=== PATIENT | male | born 1975 | race Hispanic/Latino ===

== ENCOUNTER 2022-01-10 10:18 | Emergency (ER) | payer OTHER ==
[~2022-01-10] VITALS: Ht 157.5 cm; Wt 70.3 kg
[2022-01-10 12:13] LABS: BASOPHILS % (AUTO) 0.5 % (0.0-5.0); HEMATOCRIT 38.2 % (42-54); MEAN CORPUSCULAR HEMOGLOBIN 32.4 pg (27.0-33.0); MEAN CORPUSCULAR VOLUME 98.2 fL (79-99); MONOCYTES % (AUTO) 9.3 % (3.0-13.0); NEUTROPHILS % (AUTO) 77.9 % (40.0-77.0); PLATELET COUNT (AUTO) 285 K/uL (130-400); RED BLOOD CELL COUNT(AUTO) 3.89 MIL/uL (4.50-6.20); WHITE BLOOD COUNT (AUTO) 12.5 K/uL (4.8-10.8)
[2022-01-10] MEDS ORDERED: LIDOCAINE HCL MPF 1% 5ML VIAL ONE (12:32)
[2022-01-10 12:42] LABS: CREATININE 0.9 mg/dL (0.5-1.5); POTASSIUM 4.2 mmol/L (3.5-5.1)
[2022-01-10 12:46] LABS: ALBUMIN 3.4 g/dL (3.5-5.0); BILIRUBIN,TOTAL 0.6 mg/dL (0.2-1.0); TOTAL PROTEIN, SERUM 7.7 g/dL (6.0-8.3); URIC ACID 7.2 mg/dL (2.6-7.2)
[2022-01-10 13:19] LABS: ERYTHROCYTE SEDIMENTATION RATE 49 MM/HR (0-15)
[2022-01-10] MEDS ORDERED: KETOROLAC 60 MG VIAL (30MG/ML) IM ONE (13:30)
[2022-01-10 13:55] LABS: APPEARANCE BODY FLUID CLOUDY (CLEAR); COLOR,BODY FLUID YELLOW (LT YELLOW); SPECIMENTYPE,BODY FLUID SYNOVIAL; TOTAL VOLUME,BODY FLUID 12 mL
[2022-01-10 13:56] LABS: BODY FLUID RBC 100 /cu. mm.; BODY FLUID WBC 5680 /cu. mm.
[2022-01-10 13:59] LABS: BF LYMPHOCYTE 2 %
[2022-01-10] MEDS ORDERED: NAPR-1180 PO (15:52)
[2022-01-10 16:04] VITALS: BP 126/78
== END 2022-01-10 16:17 | disposition home or self-care (01) ==
LOC: EDH 10:18
DX: M25.462 Effusion, left knee (principal); M25.561 Pain in right knee; M25.562 Pain in left knee; Z79.1 Long term (current) use of non-steroidal anti-inflammatories (NSAID)
CPT/HCPCS: 20610; 36415; 73560; 80053; 84550; 85025; 85651; 87071; 87205; 89051; 89060; 96372; 99284; J1885; J3490

== ENCOUNTER 2024-06-18 14:43 | Emergency (ER) | payer SELFPAY ==
[~2024-06-18] VITALS: Ht 167.6 cm; Wt 68.0 kg
[~2024-06-18 14:43] MED LIST: NAPR-1180 PO
[2024-06-18 16:09] LABS: BASOPHILS # (AUTO) 0.07 K/uL (0.00-0.20); BASOPHILS % (AUTO) 0.8 % (0.0-5.0); EOSINOPHILS % (AUTO) 3.6 % (0.0-8.0); IMMATURE GRANULOCYTE ABSOLUTE 0.02 K/uL (0-1); LYMPHOCYTES # (AUTO) 2.2 K/uL (1.0-4.8); LYMPHOCYTES % (AUTO) 27.1 % (21.0-51.0); MEAN CORPUSCULAR HEMOGLOBIN 32.8 pg (27.0-33.0); MEAN CORPUSCULAR HGB CONC 34.1 g/dL (32.0-36.0); MEAN CORPUSCULAR VOLUME 96.3 fL (79-99); MONOCYTES # (AUTO) 0.9 K/uL (0.1-1.0); MONOCYTES % (AUTO) 11.1 % (3.0-13.0); NEUTROPHILS # (AUTO) 4.7 K/uL (1.8-7.7); NEUTROPHILS % (AUTO) 57.2 % (40.0-77.0); PLATELET COUNT (AUTO) 240 K/uL (130-400); RED BLOOD CELL COUNT(AUTO) 4.05 MIL/uL (4.50-6.20); RED CELL DISTRIBUTION WIDTH 12.5 % (11.0-15.5); WHITE BLOOD COUNT (AUTO) 8.3 K/uL (4.8-10.8)
[2024-06-18 16:18] LABS: POTASSIUM 3.8 mmol/L (3.5-5.1)
[2024-06-18] MEDS ORDERED: BUTA-271 PO (17:53)
[2024-06-18] MEDS: 0.9%NACL 1000ML 1,000 ML IV ONE (18:45)
[2024-06-18] MEDS: Solu-medROL 125MG VIAL IVP ONE (18:47)
[2024-06-18] MEDS: METOCLOPRAMIDE 10 MG/2 ML VIAL IVP ONE (18:47)
[2024-06-18] MEDS: CYCLOBENZAPRINE HCL 10 MG TABLET PO ONE (18:48)
[2024-06-18] MEDS: KETOROLAC 30MG VIAL (30MG/ML) IVP ONE (18:48)
[2024-06-18 19:47] VITALS: BP 134/85; PULSE 72; RESP 16; O2SAT 100
== END 2024-06-18 19:47 | disposition home or self-care (01) ==
LOC: EDH 14:43
DX: G44.209 Tension-type headache, unspecified, not intractable (principal); E78.00 Pure hypercholesterolemia, unspecified; Z79.899 Other long term (current) drug therapy
CPT/HCPCS: 99285; 96374; 70450; 96375; 96361; 80048; 85025; 36415; J7030; J2919; J1885; J2765